=== PATIENT | female | born 1955 | race Hispanic/Latino ===

== ENCOUNTER → 2022-01-29 | Outpatient (CLI) | payer BC | END | disposition home or self-care (01) | LOC: SHCH 12:37 | PROVIDERS: ATTEND Student in an Organized Health Care Education/Training Program | DX: R07.9 Chest pain, unspecified (principal) | CPT/HCPCS: 93306 ==

== ENCOUNTER → 2022-02-09 | Outpatient (CLI) | payer BC | END | disposition home or self-care (01) | LOC: LAB 11:13 | PROVIDERS: ATTEND Student in an Organized Health Care Education/Training Program | DX: I10 Essential (primary) hypertension (principal) | CPT/HCPCS: 36415; 82550 ==

== ENCOUNTER → 2022-06-11 | Outpatient (CLI) | payer BC ==
[2022-06-11 12:52] LABS: CREATININE 0.8 mg/dL (0.5-1.5); POTASSIUM 4.1 mmol/L (3.5-5.1)
== END | disposition home or self-care (01) ==
LOC: LAB 08:33
PROVIDERS: ATTEND Student in an Organized Health Care Education/Training Program
DX: I10 Essential (primary) hypertension (principal)
CPT/HCPCS: 36415; 80048

== ENCOUNTER → 2022-06-19 | Outpatient (CLI) | payer BC ==
[~2022-06-19] MED LIST: IOHEXOL 350 MG/ML 100ML INFUS..BTL IV ONE; METOPROLOL TARTRATE 1 MG/ML 5ML VIAL IV ONE
== END | disposition home or self-care (01) ==
LOC: EDUNIT# 04-08 09:00 → RAH 09:29
PROVIDERS: ATTEND Student in an Organized Health Care Education/Training Program
DX: R07.9 Chest pain, unspecified (principal); M47.815 Spondylosis without myelopathy or radiculopathy, thoracolumbar region
CPT/HCPCS: 75574; J3490 ×2; Q9967

== ENCOUNTER → 2022-06-26 | Outpatient (CLI) | payer BC ==
[2022-06-26 14:15] LABS: APPEARANCE,URINE CLEAR (CLEAR); BILIRUBIN,URINE NEGATIVE (NEGATIVE); COLOR,URINE LIGHT-YELLOW (YELLOW); GLUCOSE, URINE (UA) NEGATIVE (NEGATIVE); KETONES,URINE NEGATIVE (NEGATIVE); LEUKOCYTE ESTERASE ,URINE 25 Leu/uL (NEGATIVE); NITRATE,URINE 2+ (NEGATIVE); OCCULT BLOOD,URINE NEGATIVE (NEGATIVE); PH,URINE 5.5 (5.0-8.0); PROTEIN,URINE NEGATIVE (NEGATIVE); UROBILINOGEN,URINE 0.2 mg/dL (0.2-1.0)
[2022-06-26 14:18] LABS: BACTERIA,URINE RARE /HPF (None Seen); MUCUS,URINE RARE LPF (None Seen); RBC,URINE 0-1 /HPF (0-1); SQUAMOUS EPITHELIAL CELL,UR RARE /HPF (0-2)
[2022-06-26 15:25] LABS: CHOLESTEROL 239 mg/dL (<200); HDL CHOLESTEROL 65 mg/dL (35-85); LDL DIRECT 152 mg/dL (0-99); TRIGLYCERIDES 126 mg/dL (30-200)
== END | disposition home or self-care (01) ==
LOC: LAB 13:24
PROVIDERS: ATTEND Student in an Organized Health Care Education/Training Program
DX: R07.9 Chest pain, unspecified (principal); E78.2 Mixed hyperlipidemia
CPT/HCPCS: 36415; 80061; 81001; 87077; 87088; 87186

== ENCOUNTER 2022-08-05 05:52 | Day surgery (SDC) | payer BC ==
[2022-08-03 10:48] LABS: APPEARANCE,URINE CLEAR (CLEAR); BILIRUBIN,URINE NEGATIVE (NEGATIVE); COLOR,URINE LIGHT-YELLOW (YELLOW); GLUCOSE, URINE (UA) 200 mg/dL (NEGATIVE); KETONES,URINE NEGATIVE (NEGATIVE); LEUKOCYTE ESTERASE ,URINE 250 Leu/uL (NEGATIVE); NITRATE,URINE 2+ (NEGATIVE); OCCULT BLOOD,URINE NEGATIVE (NEGATIVE); PH,URINE 5.5 (5.0-8.0); PROTEIN,URINE NEGATIVE (NEGATIVE); UROBILINOGEN,URINE 0.2 mg/dL (0.2-1.0)
[2022-08-03 11:11] LABS: BACTERIA,URINE RARE /HPF (None Seen); MUCUS,URINE RARE LPF (None Seen); RBC,URINE 0-1 /HPF (0-1); SQUAMOUS EPITHELIAL CELL,UR RARE /HPF (0-2); WBC,URINE 51-100 /HPF (0-1)
[2022-08-03 11:38] LABS: BASOPHILS % (AUTO) 0.6 % (0.0-5.0); EOSINOPHILS % (AUTO) 4.7 % (0.0-8.0); HEMATOCRIT 41.8 % (36-48); MEAN CORPUSCULAR HEMOGLOBIN 29.1 pg (27.0-33.0); MEAN CORPUSCULAR HGB CONC 33.3 g/dL (32.0-36.0); MEAN CORPUSCULAR VOLUME 87.4 fL (79-99); MONOCYTES % (AUTO) 5.3 % (3.0-13.0); NEUTROPHILS % (AUTO) 63.9 % (40.0-77.0); PLATELET COUNT (AUTO) 212 K/uL (130-400); RED BLOOD CELL COUNT(AUTO) 4.78 MIL/uL (4.00-5.50); RED CELL DISTRIBUTION WIDTH 12.5 % (11.0-15.5); WHITE BLOOD COUNT (AUTO) 6.6 K/uL (4.8-10.8)
[2022-08-03 11:49] LABS: CREATININE 0.8 mg/dL (0.5-1.5); POTASSIUM 3.8 mmol/L (3.5-5.1)
[2022-08-03 11:50] LABS: INR 0.94 (0.85-1.15); PROTHROMBIN TIME 10.3 SEC (9.6-11.6)
[2022-08-03 11:51] LABS: PARTIAL THROMBOPLASTIN TIME 26.8 SEC (26.3-35.5)
[2022-08-03 12:10] LABS: B-TYPE NATRIURETIC PEPTIDE 26 pg/mL (0-100)
[2022-08-04 10:14] VITALS: BP 152/74
[~2022-08-05] VITALS: Ht 160 cm; Wt 93.5 kg
[2022-08-05] VITALS (16 sets, daily range): BP systolic 114–164; BP diastolic 44–77
[~2022-08-05 05:52] MED LIST changes: +AMLO-257 PO; +EZET10TA48 PO; -IOHEXOL 350 MG/ML 100ML INFUS..BTL IV ONE; +METF-446 PO; -METOPROLOL TARTRATE 1 MG/ML 5ML VIAL IV ONE; +MULT-1258 PO
[2022-08-05] MEDS ORDERED: 0.9%NACL 1000ML 1,000 ML IV ONE (06:13)
[2022-08-05] MEDS ORDERED: NITROGLYCERIN 50MG VIAL ONE (07:11)
[2022-08-05] MEDS ORDERED: VERAPAMIL HCL 2.5 MG/ML VIAL ONE (07:11)
[2022-08-05] MEDS ORDERED: IOHEXOL-350 50ML VIAL IV ONE (07:11)
[2022-08-05] MEDS ORDERED: IOHEXOL 350 MG/ML 100ML INFUS..BTL IV ONE (07:11)
[2022-08-05] MEDS ORDERED: HEPARIN 10,000 UNIT/10ML (1,000 UNIT/ML) VIAL ONE (07:11)
[2022-08-05] MEDS ORDERED: FENTANYL CITRATE PF 50 MCG/1 ML 2ML VIAL ONE (07:12)
[2022-08-05] MEDS ORDERED: MIDAZOLAM HCL 1 MG/ML 2ML VIAL ONE (07:12)
[2022-08-05] MEDS ORDERED: LIDOCAINE HCL 400MG/20ML VIAL ONE (07:12)
[2022-08-05] MEDS ORDERED: GLUCAGON 1MG KIT 1 MG ML IM PRN (09:00)
[2022-08-05] MEDS ORDERED: DEXTROSE 50%-WATER 50 ML DISP.SYRIN IV PRN (09:00)
[2022-08-05] MEDS ORDERED: INSULIN HUMULIN R 100 UNIT/ML 3ML ONE (09:34)
[2022-08-05] MEDS ORDERED: GENTAMICIN 80 MG/NS 100 ML PB 100 ML IV ONE (11:54)
[2022-08-05] MEDS ORDERED: INSULIN HUMULIN R 100 UNIT/ML 3ML SQ SCH (12:00)
== END 2022-08-05 13:25 | disposition home or self-care (01) ==
LOC: DAH 05:52
PROVIDERS: ATTEND Student in an Organized Health Care Education/Training Program
DX: I25.119 Atherosclerotic heart disease of native coronary artery with unspecified angina pectoris (principal); I10 Essential (primary) hypertension; E78.2 Mixed hyperlipidemia; E11.8 Type 2 diabetes mellitus with unspecified complications; Z72.89 Other problems related to lifestyle; Z79.84 Long term (current) use of oral hypoglycemic drugs; Z79.899 Other long term (current) drug therapy; Z79.01 Long term (current) use of anticoagulants
CPT/HCPCS: 80048; 83880; 85025; 85610; 85730; 87088; 81001; 36415; 71045; 93005; 93458; 93571; 85347; 87077; 87186; 82948 ×2; J1815; C1769 ×2; C1894; C1887; J3010; J3490 ×3; J7030; J1644 ×2; J2250; J1580; Q9967; A4215; A4335; A4222; A6260; A4221; A4663; A4216; A6206; A4606; Q9965 ×2; A4223 ×3; A4554; 99156; 99157

== ENCOUNTER → 2022-10-21 | Outpatient (CLI) | payer BC ==
[~2022-10-21] MED LIST changes: -AMLO-257 PO
[2022-10-21 12:37] LABS: CHOLESTEROL 191 mg/dL (<200); HDL CHOLESTEROL 62 mg/dL (35-85); LDL DIRECT 116 mg/dL (0-99); TRIGLYCERIDES 131 mg/dL (30-200)
== END | disposition home or self-care (01) ==
LOC: LAB 08:54
PROVIDERS: ATTEND Student in an Organized Health Care Education/Training Program
DX: E78.2 Mixed hyperlipidemia (principal)
CPT/HCPCS: 36415; 80061

== ENCOUNTER → 2023-05-05 | Outpatient (CLI) | payer BC ==
[2023-05-05 12:50] LABS: CHOLESTEROL 235 mg/dL (<200); HDL CHOLESTEROL 66 mg/dL (35-85); LDL DIRECT 152 mg/dL (0-99); TRIGLYCERIDES 64 mg/dL (30-200)
== END | disposition home or self-care (01) ==
LOC: LAB 08:13
PROVIDERS: ATTEND Student in an Organized Health Care Education/Training Program
DX: E78.2 Mixed hyperlipidemia (principal)
CPT/HCPCS: 36415; 80061

== ENCOUNTER → 2023-07-19 | Outpatient (CLI) | payer BC | END | disposition home or self-care (01) | LOC: RAH 15:26 | PROVIDERS: ATTEND Internal Medicine | DX: Z12.31 Encounter for screening mammogram for malignant neoplasm of breast (principal); R92.323 Mammographic fibroglandular density, bilateral breasts | CPT/HCPCS: 77067 ==

== ENCOUNTER → 2023-11-30 | Outpatient (CLI) | payer BC ==
[2023-11-30 12:49] LABS: CHOLESTEROL 234 mg/dL (<200); HDL CHOLESTEROL 70 mg/dL (35-85); LDL DIRECT 154 mg/dL (0-99); TRIGLYCERIDES 123 mg/dL (30-200)
== END | disposition home or self-care (01) ==
LOC: LAB 08:46
PROVIDERS: ATTEND Student in an Organized Health Care Education/Training Program
DX: R07.9 Chest pain, unspecified (principal)
CPT/HCPCS: 36415; 80061

== ENCOUNTER → 2024-04-25 | Outpatient (CLI) | payer BC, MEDICARE | END | disposition home or self-care (01) | LOC: RAH 08:28 | PROVIDERS: ATTEND Internal Medicine | DX: M25.551 Pain in right hip (principal); M25.552 Pain in left hip | CPT/HCPCS: 73522 ==

== ENCOUNTER → 2024-05-03 | Outpatient (CLI) | payer BC, MEDICARE ==
[2024-05-03 12:28] LABS: CHOLESTEROL 174 mg/dL (<200); HDL CHOLESTEROL 67 mg/dL (35-85); LDL DIRECT 93 mg/dL (0-99); TRIGLYCERIDES 103 mg/dL (30-200)
== END | disposition home or self-care (01) ==
LOC: LAB 08:19
PROVIDERS: ATTEND Student in an Organized Health Care Education/Training Program
DX: E78.2 Mixed hyperlipidemia (principal)
CPT/HCPCS: 36415; 80061

== ENCOUNTER → 2024-05-24 | Outpatient (CLI) | payer BC, MEDICARE ==
--- NOTE | 2024-05-24 12:45 | HMCIMG ---
CHEST PA, LATERAL AND LORDOTIC REASON: ENCOUNTER FOR OTHER PREOP EXAMINATION COMPARISON: None. TECHNIQUE: Routine 2 view exam was performed. Lordotic views were obtained as well. FINDINGS: Two views of the chest were obtained. Lungs are clear. Heart size is normal. There is no pulmonary vascular congestion. Mediastinum and bony thorax appear unremarkable. The lordotic view shows normal lung apices without evidence of focal infiltrate. IMPRESSION: Normal two view chest x-ray.
== END | disposition home or self-care (01) ==
LOC: RAH 10:40
PROVIDERS: ATTEND Internal Medicine
DX: Z01.818 Encounter for other preprocedural examination (principal); I12.9 Hypertensive chronic kidney disease with stage 1 through stage 4 chronic kidney disease, or unspecified chronic kidney disease; E11.22 Type 2 diabetes mellitus with diabetic chronic kidney disease; N18.2 Chronic kidney disease, stage 2 (mild); E11.65 Type 2 diabetes mellitus with hyperglycemia; E78.2 Mixed hyperlipidemia
CPT/HCPCS: 71047

== ENCOUNTER → 2024-07-24 | Outpatient (CLI) | payer BC, MEDICARE ==
[2024-07-24 12:48] LABS: CHOLESTEROL 149 mg/dL (<200); HDL CHOLESTEROL 71 mg/dL (35-85); LDL DIRECT 63 mg/dL (0-99); TRIGLYCERIDES 107 mg/dL (30-200)
== END | disposition home or self-care (01) ==
LOC: LAB 09:57
PROVIDERS: ATTEND Student in an Organized Health Care Education/Training Program
DX: E78.2 Mixed hyperlipidemia (principal)
CPT/HCPCS: 36415; 80061

== ENCOUNTER → 2024-07-31 | Outpatient (CLI) | payer BC, MEDICARE ==
--- NOTE | 2024-07-31 15:18 | HMCIMG ---
TMJ BILAT REASON: CONTUSION OF HEAD AND NECK REGION/ARTHRALGIA OF RIGHT SIDE. COMPARISON: None TECHNIQUE: 6 images of bilateral TMJs were obtained. FINDINGS: Nasal septum is grossly midline. Normal translation is noted of the TMJ bilaterally in the open-mouth view. If there is clinical suspicion for TMJ disc dislocation, MRI may be helpful. There is no acute displaced fracture or dislocation. IMPRESSION: Findings at described above.
== END | disposition home or self-care (01) ==
LOC: LAB 11:26
PROVIDERS: ATTEND Internal Medicine
DX: S00.93XA Contusion of unspecified part of head, initial encounter (principal); S10.93XA Contusion of unspecified part of neck, initial encounter; M26.621 Arthralgia of right temporomandibular joint; X58.XXXA Exposure to other specified factors, initial encounter; Y93.89 Activity, other specified; Y92.89 Other specified places as the place of occurrence of the external cause; Y99.8 Other external cause status
CPT/HCPCS: 70330

== ENCOUNTER → 2024-08-30 | Outpatient (CLI) | payer BC, MEDICARE ==
--- NOTE | 2024-08-31 09:08 | HMCIMG ---
SCREENING MAMMOGRAM REASON: Annual Exam COMPARISON: 07/19/2023 TECHNIQUE: CC and MLO views of the bilateral breasts were performed.CAD was performed as well. FINDINGS: Parenchymal density: There are scattered areas of fibroglandular density. There are no focal mass lesions. There are no pathologic appearing calcifications. There is no evidence of architectural distortion or skin thickening. IMPRESSION: Normal screening mammogram The patient was entered into a reminder system with a target due date for their next mammogram. BI-RADS CATEGORY 1: NEGATIVE Recommend monthly self breast exam as well as annual clinical examination. A negative x-ray should not delay biopsy if a dominant or clinically suspicious mass is present, since 8-10% of cancers are not identified by mammography. Dense breasts particularly, may obscure an underlying neoplasm. Some of these may be detected clinically and therefore, clinical examination is an essential part of breast evaluation.
== END | disposition home or self-care (01) ==
LOC: RAH 15:33
PROVIDERS: ATTEND Internal Medicine
DX: Z12.31 Encounter for screening mammogram for malignant neoplasm of breast (principal); R92.323 Mammographic fibroglandular density, bilateral breasts
CPT/HCPCS: 77067